=== PATIENT | female | born 2000 | race African-American/Black ===

== ENCOUNTER 2022-05-04 23:39 | Emergency (ER) | payer OTHER ==
[~2022-05-04] VITALS: Ht 167.6 cm; Wt 60.0 kg
[2022-05-05] MEDS ORDERED: IBUPROFEN 600MG TABLET PO ONE (00:30)
[2022-05-05 00:45] VITALS: BP 124/90
[2022-05-05] MEDS ORDERED: IBUP-2029 MT (01:11)
== END 2022-05-05 01:20 | disposition home or self-care (01) ==
LOC: ER 23:39
DX: R51.9 Headache, unspecified (principal); R42 Dizziness and giddiness; Z86.73 Personal history of transient ischemic attack (TIA), and cerebral infarction without residual deficits
CPT/HCPCS: 99283